=== PATIENT | male | born 1945 | race Caucasian/White ===

== ENCOUNTER 2018-02-27 08:37 | Emergency (ER) | payer OTHER ==
[~2018-02-27] VITALS: Ht 170.2 cm; Wt 74.8 kg
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
--- OUTSIDE RECORDS SUMMARY | ~2018-02-27 | XMS | Clinical Summary ---
Demographics + + + | Address | [address] | | | [place] [address] | + + + | Home Phone | | + + + | Preferred Language | Unknown | + + + | Marital Status | | + + + | Alevism Affiliation | 1077 | + + + | Race | Unknown | + + + | Ethnic Group | Unknown | + + + Author + + + | Author | [facility] | | | and [place] | + + + | Organization | [facility] | | | and [place] | + + + | Address | Unknown | + + + | Phone | Unavailable | + + + Support + + + + + | Name | Relationship | Address | Phone | + + + + + | Kallie Blanc | ECON | [address] | | | | | [facility] [place] | | | | | [address] | | + + + + + Care Team Providers + +------+ + | Care Laborer [place] Name | Role | Phone | + [...] | OSTEOTECH - | | 09/13/ | [id number] | | [id number]: Qty: 1 | | Spine | OSTT [...] N/A: | NUVASIVE - | | | [id number] | | [id number]: Qty: 2 | | Spine | NVSV | | | 0A / / | | on 01/15/2015 by Manolo Klein | | Lumbar | | | | | | MD Jorge | | | | | | | + +------+--------+ +--------+--------+--------+ | Bone Matrix Osteocel Pro 10cc | | N/A: | NUVASIVE - | | 07/31/ | [id number] | | - [id number]: Qty: | | Spine | NVSV | | 2019 | 0 | | 1 on 01/15/2015 by Manolo Klein | | Lumbar | | | | /[id number] | | MD Jorge | | | | | | 0504 / | + +------+--------+ +--------+--------+--------+ | Canellous Chips | | N/A: | COMMUNITY | | 10/16/ | [id number] | | 4-10mmImplanted: Qty: 1 on | | Spine | TISSUE | | 2017 | | | 01/15/2015 by Manolo Klein, | | Lumbar | SERVICES - | | | /[id number] | | MD | | | COMS | | | 2-032 | | | | | | | | / | + +------+--------+ +--------+--------+--------+ | Imp Spn Spcr Tor [id number] 10d | | N/A: | NUVASIVE - | | | [id number] | | - [id number]: Qty: 1 | | Spine | NVSV | | | 1 / / | | on 01/15/2015 by Manolo Klein | | Lumbar | | | | | | A, MD | | | | | | | + +------+--------+ +--------+--------+--------+ | Screw Poly 6.5x50mm - | | N/A: | NUVASIVE - | | | [id number] | | [id number]: Qty: 4 on | | Spine | NVSV | | | 0A / / | | 01/15/2015 by Manolo Klein, | | Lumbar | | | | | | MD | | | | | | | + +------+--------+ +--------+--------+--------+ | Screw Poly 7.5x50mm - | | N/A: | NUVASIVE - | | | [id number] | | [id number]: Qty: 2 on | | Spine | NVSV | | | 0A / / | | 01/15/2015 by Manolo Klein, | | Lumbar | | | | | | MD | | | | | | | + +------+--------+ +--------+--------+--------+ | Screw Set - | | N/A: | NUVASIVE - | | | [id number] | | [id number]: Qty: 8 on | | Spine | NVSV | | | 0 / / | | 01/15/2015 by Manolo Klein, | | Lumbar | | | | | | MD | | | | | | | + +------+--------+ +--------+--------+--------+ | Chilango Ti Prebent Lordtc 90mm - | | N/A: | NUVASIVE - | | | [id number] | | [id number]: Qty: 2 on | | Spine | NVSV | | | 0 / / | | 01/15/2015 by Manolo Klein, | | Lumbar | | | | | | MD | | | | | | | + +------+--------+ +--------+--------+--------+ | Imp Spn Spcr Cornt Xl | | N/A: | NUVASIVE - | | | [id number] | | [id number] | | Spine | NVSV | | | 0 / / | | [id number]: Qty: 2 on | | Lumbar | [...] | [birth year] | Home: | [address] | | | al/Fam | | 1946 | [phone] [place] [address] | | | [place]ium | | | [phone] | | + +--------+ +--------+ + +
[~2018-02-27 08:37] MED LIST: ASPIR-LOW81 MG PO; LISINOPRIL20 MG PO; PANTOPRAZOLE SO40 MG PO; SIMVASTATIN10 MG PO; SYMBICORT 16010.2 GM INH; VITAMIN D-32000 UNIT PO
== END 2018-02-27 09:39 | disposition home or self-care (01) ==
LOC: ED 08:37
PROC: 0HQDXZZ Repair Right Lower Arm Skin, External Approach (ICD-10-PCS; principal; 2018-02-27)
DX: S51.811A Laceration without foreign body of right forearm, initial encounter (principal); I10 Essential (primary) hypertension; Z79.82 Long term (current) use of aspirin; Z79.899 Other long term (current) drug therapy; Z23 Encounter for immunization; W10.9XXA Fall (on) (from) unspecified stairs and steps, initial encounter; W45.8XXA Other foreign body or object entering through skin, initial encounter
CPT/HCPCS: 12002; 90471; 90715; 99282

== ENCOUNTER 2023-09-06 12:12 | Emergency (ER) | payer OTHER, MEDICARE, BC ==
[~2023-09-06] VITALS: Ht 170.2 cm; Wt 69.8 kg
[2023-09-06 12:25] LABS: BASOPHILS 0.8 % (0-2); EOSINOPHILS 6.5 % (0-6); HEMATOCRIT 38.9 % (35.0-50.0); HEMOGLOBIN 13.4 g/dL (12.0-18.0); LYMPHOCYTES 28.1 % (24-44); MCH 31.1 (27-36); MCHC 34.3 g/dl (30-36); MCV 90.6 fl (81-99); MONOCYTES 7.7 % (0-12); NEUTROPHILS 56.9 % (39-80); PLATELET COUNT 244 K/uL (140-440); RDW 13.7 (10.5-15.0)
[2023-09-06 12:36] LABS: INR 0.99 (0.80-1.30); PARTIAL THROMBOPLASTIN TIME 27.1 Sec (22.9-41.3); PROTIME 12.6 Sec (11.2-14.2)
[2023-09-06 12:41] LABS: ALBUMIN 3.6 g/dL (3.4-5.0); ALBUMIN/GLOBULIN RATIO 0.97 (1.1-2.4); ANION GAP 14.9 (7-21); BILIRUBIN, TOTAL 0.4 ng/dL (0.2-1.0); BUN/CREATININE RATIO 21.42 (6.0-28.6); CALCIUM 8.6 mg/dL (8.5-10.1); CREATININE, SERUM 0.98 mg/dL (0.70-1.30); POTASSIUM 3.9 mmol/L (3.5-5.1); PROTEIN, TOTAL 7.3 g/dL (6.4-8.2)
[2023-09-06 13:50] LABS: INFLUENZA B NAA NEGATIVE (NEGATIVE); RESPIRATORY SYNCYTIAL VIR NAA NEGATIVE (NEGATIVE)
[2023-09-06 15:10] VITALS: BP 120/86
--- NOTE | 2023-09-08 06:52 | EKG ---
[facility] [address] [place], [place] [address] Signed Atrial-paced rhythm with prolonged AV conduction Left axis deviation Abnormal ECG No previous ECGs available Confirmed by EVA PABLO MD ([id number]) on 09/08/2023 6:52:15 AM Electronically Signed By: EVA PABLO 09/08/23 0652 PATIENT NAME: SUMIT BLANC Electrocardiogram DATE OF : 47 PHYSICIAN: EVA PABLO REPORT #: [id number] REPORT IS CONFIDENTIAL AND NOT TO BE RELEASED WITHOUT AUTHORIZATION
== END 2023-09-06 15:10 | disposition short-term general hospital (02) ==
LOC: ED 12:12
PROVIDERS: Emergency Medicine
DX: I63.9 Cerebral infarction, unspecified (principal); Z20.822 Contact with and (suspected) exposure to COVID-19; I10 Essential (primary) hypertension; K21.9 Gastro-esophageal reflux disease without esophagitis; J45.909 Unspecified asthma, uncomplicated; E78.5 Hyperlipidemia, unspecified; Z79.899 Other long term (current) drug therapy; Z79.82 Long term (current) use of aspirin
CPT/HCPCS: 36415; 70450; 70496; 70498; 71045; 80053; 85025; 85610; 85730; 87502; 93005; 93010; 99285-25; J3101; Q9967; U0002